=== PATIENT | male | born 1990 | race Caucasian/White ===

== ENCOUNTER 2023-05-18 09:56 | Emergency (ER) | payer BC, MEDICAID, OTHER ==
[~2023-05-18] VITALS: Ht 180.3 cm; Wt 67.2 kg
[2023-05-18 10:22] VITALS: BP 117/69; PULSE 97; RESP 18; TEMP 98.7; O2SAT 97
[2023-05-18] MEDS ORDERED: CEPH500C PO (10:31)
[2023-05-18] MEDS ORDERED: IBUP-1454 PO (10:31)
== END 2023-05-18 10:36 | disposition home or self-care (01) ==
LOC: ER 09:56
DX: L05.91 Pilonidal cyst without abscess (principal); F41.9 Anxiety disorder, unspecified; F17.210 Nicotine dependence, cigarettes, uncomplicated; Z79.899 Other long term (current) drug therapy

== ENCOUNTER 2023-05-20 10:48 | Emergency (ER) | payer BC, MEDICAID, OTHER ==
[~2023-05-20] VITALS: Ht 180.3 cm; Wt 67.5 kg
[~2023-05-20 10:48] MED LIST: CEPH500C PO; IBUP-1454 PO
[2023-05-20 11:25] VITALS: BP 120/74; PULSE 108; RESP 15; TEMP 98.3; O2SAT 97
[2023-05-20] MEDS ORDERED: HYDR-4902 PO (13:15)
[2023-05-20] MEDS ORDERED: DOXY-286 PO (13:15)
[2023-05-20] MEDS: cefTRIAXone SOD 1,000 MG VL IM ONE (13:31)
[2023-05-20] MEDS: LIDOCAINE 1% HCL (LOCAL ANESTH.) INJ 20ML MDV IJ ONE (13:31)
== END 2023-05-20 13:35 | disposition home or self-care (01) ==
LOC: ER 10:48
DX: L05.01 Pilonidal cyst with abscess (principal); F41.9 Anxiety disorder, unspecified; F17.210 Nicotine dependence, cigarettes, uncomplicated; Z79.899 Other long term (current) drug therapy
CPT/HCPCS: 96372; 99283; J0696; J2001